=== PATIENT | male | born 1935 | race Caucasian/White ===

== ENCOUNTER 2021-10-29 17:15 | Inpatient (IN) | payer MEDICARE, BC ==
[~2021-10-29] VITALS: Ht 172.7 cm; Wt 63.7 kg
[2021-10-29 17:58] LABS: HEMATOCRIT 33.7 % (42.0-52.0); MCH 29.9 pg (26.0-34.0); MCHC 32.7 g/dL (28.0-37.0); MCV 91.6 fL (80.0-100.0); MPV 7.1 fl. (7.2-11.1); NUCLEATED RBCS 0 /100WBC; PLATELET COUNT* 352 thou/uL (150-400); RBC 3.68 mil/uL (4.50-6.00); RDW-CV 17.3 % (10.5-14.5); WBC 20.1 thou/uL (4.0-11.0)
[2021-10-29 18:05] VITALS: BP 105/67
[2021-10-29 18:07] LABS: CREATININE 2.5 mg/dL (0.6-1.3); POTASSIUM 5.2 mmol/L (3.5-5.1)
[2021-10-29 18:18] LABS: ALBUMIN 2.6 g/dL (3.4-5.0); TOTAL BILIRUBIN 1.5 mg/dL (<0.1-1.0); TOTAL PROTEIN 7.4 g/dL (6.4-8.2)
[2021-10-29 18:35] LABS: ABSOLUTE LYMPHOCYTES 0.6 thou/uL (0.8-5.3); ABSOLUTE MONOCYTES 1.4 thou/uL (0.0-1.2); ABSOLUTE NEUTROPHILS 18.1 thou/uL (1.6-8.1); PLATELET ESTIMATE ADEQUATE
[2021-10-29 18:36] LABS: POLYCHROMASIA Occasional
[2021-10-29] MEDS ORDERED: WARFARIN SODIUM5 MG (19:04)
[2021-10-29] MEDS ORDERED: POTASSIUM (19:05)
[2021-10-29] MEDS ORDERED: DILTIAZEM (19:05)
[2021-10-29] MEDS ORDERED: "\\\"WATER PILL\\\"" (19:06)
[2021-10-29 20:54] LABS: INR 2.4; PROTIME 23.5 Seconds (9.20-11.50)
[2021-10-29 23:30] VITALS: BP 107/80
[2021-10-29 23:36] VITALS: BP 165/135
[2021-10-29 23:53] LABS: BE -0.2 mmol/L (-2 to +3); PCO2 VENOUS 46.9 mmHg (41.0-51.0); PO2 VENOUS 31.9 mmHg (35.0-45.0)
[2021-10-30] VITALS (96 sets, daily range): BP systolic 67–154; BP diastolic 33–111
[2021-10-30 05:32] LABS: ABSOLUTE BASOPHILS 0.1 thou/uL (0.0-0.2); ABSOLUTE LYMPHOCYTES 0.2 thou/uL (0.8-5.3); ABSOLUTE MONOCYTES 0.7 thou/uL (0.0-1.2); ABSOLUTE NEUTROPHILS 18.3 thou/uL (1.6-8.1); BASOPHILS 0.5 %; HEMOGLOBIN 9.6 gm/dL (14.0-18.0); LYMPHOCYTES 0.9 %; MCH 29.1 pg (26.0-34.0); MCV 91.2 fL (80.0-100.0); MONOCYTES 3.4 %; MPV 7.3 fl. (7.2-11.1); NUCLEATED RBCS 0 /100WBC; PLATELET COUNT* 314 thou/uL (150-400); POLYS 95.2 %; RBC 3.29 mil/uL (4.50-6.00); RDW-CV 17.2 % (10.5-14.5); WBC 19.3 thou/uL (4.0-11.0)
[2021-10-30 05:49] LABS: PREALBUMIN 7.4 mg/dL (18.0-35.7)
[2021-10-30 06:03] LABS: CALCIUM 9.1 mg/dL (8.5-10.1); CREATININE 2.3 mg/dL (0.6-1.3); POTASSIUM 5.6 mmol/L (3.5-5.1); TOTAL BILIRUBIN 1.3 mg/dL (<0.1-1.0)
[2021-10-30 08:45] LABS: INR 2.7; PROTIME 26.5 Seconds (9.20-11.50)
--- NOTE | 2021-10-30 09:08 | EKG ---
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: : 1935 Requested By: Manas De Leon Order Number: [id number] MD: David Davis Measurements Intervals [place] Rate: 128 P: SC: QRS: -82 QRSD: 73 T: 53 QT: 291 QTc: 425 Interpretive Statements Atrial fibrillation with a mildly tachycardic ventricular response Abnormal R-wave progression, early transition Inferior infarct, age indeterminate Consider anterior infarct No previous ECG available for comparison Electronically Signed On 10-30-2021 9:08:40 CONTROL SUPERVISOR by David Davis [email or web address] <ELECTRONICALLY SIGNED> By: David Davis MD, [facility] 10/30/2108 174 [id number] David Davis MD, [facility] /EPI
[2021-10-30 12:20] LABS: URINE BILIRUBIN NEGATIVE (Negative); URINE BLOOD 1+ (Negative); URINE CLARITY CLEAR; URINE COLOR YELLOW; URINE GLUCOSE-RANDOM NEGATIVE (Negative); URINE KETONES NEGATIVE (Negative); URINE LEUKOCYTES NEGATIVE (Negative); URINE NITRITE NEGATIVE (Negative); URINE PROTEIN TRACE (Negative); URINE SPECIFIC GRAVITY 1.025 (1.005-1.030); URINE UROBILINOGEN 0.2 E.U./dl (0.2-1.0)
[2021-10-30 12:44] LABS: HYALINE CASTS 4-10 Moderate /LPF (None Seen); SQUAMOUS 0-3 Few /LPF (0-3)
[2021-10-30 12:45] LABS: BACTERIA 1-9 Few /HPF (None Seen); CRYSTALS None Seen /LPF (None Seen); URINE RBC 0-2 Rare /HPF (0-2); URINE WBC None Seen /HPF (0-5)
--- NOTE | 2021-10-30 14:43 | 2DMMODE ---
[place] [address] 2 D/M-MODE ECHOCARDIOGRAM Name: RADHA WARD Room: [address] IN .[place].#: [id number] Admission: 10/29/21 Attend Phys: Shorty Dumont, Discharge: Date of : 35 Date of Service: 10/30/21 1443 Report #: [id number] THIS REPORT FOR: cc: FAM - No family physician/PCP FAM - No family physician/PCP David Davis MD [facility] ~ APPROVED REPORT Study performed: 10/30/2021 09:20:41 EXAM: Limited 2D, Doppler, and color-flow Echocardiogram Patient Location: In-Patient Room #: 007 Status: routine BSA: 1.79 HR: 96 bpm BP: 90/52 mmHg Rhythm: NSR Other Information Study Quality: Good Indications Congestive Heart Failure Atrial Fibrillation Sepsis Dyspnea Volumes Left Atrial Volume (Systole) LA ESV Index: 59.40 mL/m2 Aortic Valve AI [place]: 1.35 m/s2 AI PHT: 388.05 ms Tricuspid Valve RAP Estimate: 10.00 mmHg TR Peak Gr.: 63.24 mmHg RVSP: 73.00 mmHg PA Pressure: 73.00 mmHg Left Ventricle The left ventricle is normal size. There is normal LV segmental wall motion. Moderate concentric left ventricular hypertrophy. The left ventricular systolic function is [place] [address] 2 D/M-MODE ECHOCARDIOGRAM Name: RADHA WARD Room: [address] IN M.R.#: [id number] Admission: 10/29/21 Attend Phys: Shorty Dumont, Discharge: Date of : 35 Date of Service: 10/30/21 1443 Report #: [id number] ejection fraction is within the normal range. LVEF is 65-70%. Right Ventricle The right ventricle is normal size. The right ventricular systolic function is normal. Atria Left atrium is severely dilated. Right atrium is mildly dilated. Aortic Valve Mild aortic valve sclerosis. Moderate aortic regurgitation. Mitral Valve Severe mitral annular calcification. There is no mitral valve regurgitation noted. Tricuspid Valve The tricuspid valve is normal in structure. Moderate tricuspid regurgitation The RVSP is 60 mmHg. Pulmonic Valve The pulmonary valve is normal in structure. Mild pulmonic regurgitation. Great Vessels The aortic root is normal in size. IVC is dilated. Pericardium Mild pericardial effusion. <Conclusion> The left ventricle is normal size. Moderate concentric left ventricular hypertrophy. The left ventricular systolic function is normal. The left ventricular ejection fraction is within the normal range. LVEF is 65-70%. The right ventricle is normal size. Left atrium is severely dilated. Right atrium is mildly dilated. Mild aortic valve sclerosis. Moderate aortic regurgitation. Severe mitral annular calcification. There is no mitral valve regurgitation noted. The tricuspid valve [place] [address] 2 D/M-MODE ECHOCARDIOGRAM Name: RADHA WARD Room: [address] IN .R.#: [id number] Admission: 10/29/21 Attend Phys: Shorty Dumont, Discharge: Date of : 35 Date of Service: 10/30/211442 Report #: [id number] Moderate tricuspid regurgitation The RVSP is 60 mmHg. IVC is dilated. Mild pericardial effusion. There is normal LV segmental wall motion. <ELECTRONICALLY SIGNED> By: David Davis MD, FACC 10/30/211442 42 42 David Davis MD, FACC /INF
[2021-10-30 14:51] LABS: CALCIUM 9.4 mg/dL (8.5-10.1); POTASSIUM 4.5 mmol/L (3.5-5.1)
[2021-10-30 18:05] LABS: BE -3.2 mmol/L (-2 to +3); PCO2 27.8 mmHg (35.0-45.0); pH 7.466 (7.340-7.450)
[2021-10-30 18:08] LABS: PO2 206.3 mmHg (75.0-100.0)
[2021-10-30 18:15] LABS: INFLUENZA A ANTIGEN Positive (Negative); INFLUENZA B ANTIGEN Negative (Negative)
[2021-10-31] VITALS (86 sets, daily range): BP systolic 85–146; BP diastolic 34–73
[2021-10-31 02:06] LABS: GLYCOHEMOGLOBIN (HGB A1C) 5.4 % (4.8-5.6)
[2021-10-31 03:52] LABS: ABSOLUTE BASOPHILS 0.1 thou/uL (0.0-0.2); ABSOLUTE LYMPHOCYTES 0.2 thou/uL (0.8-5.3); ABSOLUTE MONOCYTES 0.7 thou/uL (0.0-1.2); ABSOLUTE NEUTROPHILS 16.9 thou/uL (1.6-8.1); BASOPHILS 0.4 %; HEMATOCRIT 27.4 % (42.0-52.0); HEMOGLOBIN 8.8 gm/dL (14.0-18.0); LYMPHOCYTES 0.9 %; MCH 28.9 pg (26.0-34.0); MCV 90.4 fL (80.0-100.0); MONOCYTES 3.7 %; MPV 7.6 fl. (7.2-11.1); NUCLEATED RBCS 0 /100WBC; RBC 3.03 mil/uL (4.50-6.00); RDW-CV 17.1 % (10.5-14.5); WBC 17.8 thou/uL (4.0-11.0)
[2021-10-31 03:56] LABS: PLATELET COUNT* 211 thou/uL (150-400)
[2021-10-31 04:15] LABS: CALCIUM 9.5 mg/dL (8.5-10.1); CREATININE 1.8 mg/dL (0.6-1.3); PHOSPHORUS* 4.6 mg/dL (2.5-4.9); POTASSIUM 3.6 mmol/L (3.5-5.1)
[2021-10-31 08:55] LABS: INR 1.6; PROTIME 16.6 Seconds (9.20-11.50)
[2021-10-31 09:00] LABS: ALBUMIN 2.5 g/dL (3.4-5.0); CALCIUM 9.1 mg/dL (8.5-10.1); CREATININE 1.6 mg/dL (0.6-1.3); MAGNESIUM 2.1 mg/dL (1.8-2.4); POTASSIUM 3.5 mmol/L (3.5-5.1); TOTAL BILIRUBIN 1.2 mg/dL (<0.1-1.0); TOTAL PROTEIN 5.7 g/dL (6.4-8.2)
--- NOTE | 2021-10-31 13:37 | CON ---
[address] [address] CONSULTATION Name: EDRADHA Carlos Room: [address] IN M.R.#: [id number] Admission: 10/29/21 Attend Phys: Shorty Dumont MD Discharge: Date of : 35 Report #: [id number] THIS REPORT FOR: cc: SKIP - No family physician/PCP SKIP - No family physician/PCP Bobby Doyle MD ~ DATE OF CONSULTATION: 10/30/2021 REQUESTING PHYSICIAN: Dr. Juarez. INDICATION FOR CONSULTATION: Acute hypoxemic respiratory failure. HISTORY OF PRESENT ILLNESS: This is an 85-year-old gentleman. I have limited information regarding his past medical history available. He is reported to be a former smoker; however, it is not known to me as to whether he has COPD. The patient is reported to be in chronic atrial fibrillation and has had mitral stenosis. He is anticoagulated with Coumadin. He has previously been at [place]. I do not have his baseline creatinine available. At this time, the patient presented with shortness of breath. I was called by the ICU nurses during the night. The patient appeared to be in obvious respiratory distress and therefore, I requested the patient to be intubated. The patient currently is on the ventilator. He is on 80% FiO2 and 10 of PEEP. He had some issues with high peak airway pressures, however, repeat to be stable with these settings. At the time of my evaluation, the patient currently has phenylephrine running at 2.13. We have not been able to obtain arterial blood gases today. Some of his blood pressures still have been on the lower side; however, it is not clear if we are getting accurate readings on blood pressure. The patient has had AFib with RVR as well. He has significant swelling of lower extremities. There is significant skin changes on the lower extremities as well. He is not really requiring a lot of sedation, only on 35 of fentanyl and 2 of Versed, appears to be well sedated with the same. PAST MEDICAL HISTORY: Severe aortic stenosis with pulmonary hypertension, pulmonary artery systolic reported to be 63 on the last echo with a hyperdynamic left ventricular ejection fraction greater than 70%. History of previous colon cancer, previous TIA, anticoagulation with Coumadin, congestive heart failure due to mitral stenosis. His baseline creatinine is not known to me. Despite a history of smoking, not known to me whether he has COPD. SOCIAL HISTORY: Previous history of smoking, unable to quantify at this time. ALLERGIES: [place] [address] CONSULTATION Name: RADHA WARD Room: [address]#: [id number] Admission: 10/29/21 Attend Phys: Shorty Dumont MD Discharge: Date of : 35 Report #: [id number] [facility] MEDICATIONS: [facility]. Note, he is on Coumadin at home. FAMILY HISTORY: No pertinent family history. VACCINATION HISTORY: Not known to me as to whether he is vaccinated for COVID. PHYSICAL EXAMINATION: GENERAL: He is well sedated. As above, ventilator settings and sedation are reviewed. VITAL SIGNS: In the records reviewed. HEENT: Head is normocephalic and atraumatic. Endotracheal tube is in good position. NECK: Does not show raised JVP, asymmetry, mass or lymph nodes. He has a central line in place. CHEST: Symmetrical expansion on inspection and palpation. On auscultation, breath sounds are decreased at bilateral lung bases, in fact, they are almost absent at the right lung base. HEART: Irregular. No murmur. ABDOMEN: Soft and nontender. EXTREMITIES: Lower extremities, 2-3+ edema bilaterally. No calf tenderness. SKIN: Dry and intact. NEUROLOGIC: No focal deficit identified, moves all extremities to pain. LABORATORY DATA: Lab work in [facility] reviewed. He is in renal failure, unknown as to whether acute or chronic. ASSESSMENT AND PLAN: 1. Acute on chronic hypoxemic respiratory failure. Note that he is reported to be on 2 liters oxygen at baseline. Currently, he is on high FiO2 and PEEP on the ventilator. We need an A-line to be able to assess further, requested the same. We will do an arterial blood gas once it is placed. Meanwhile, continue current sedation and ventilator settings. 2. Acute renal failure with fluid overload. I will try to find his previous creatinine. It is not known to me as to whether he has chronic renal failure or not. Meanwhile, I agree with albumin as ordered by Dr. Copeland, we will follow response. A renal ultrasound is pending at this time. There is an echocardiogram ordered by the Cardiology Service, which is also pending at this time. 3. Bilateral pleural effusions. There is a fairly large pleural effusion on the right side. There is a smaller one on the left as well. I will plan to request a thoracentesis on the right side tomorrow morning. He may need a thoracentesis on the left side as well. It will be preferable to have a lower INR. [address] [address] CONSULTATION Name: RADHA WARD Room: [address] IN Michelle#: [id number] Admission: 10/29/21 Attend Phys: Shorty Dumont MD Discharge: Date of : 35 Report #: [id number] Therefore, I cautiously ordered 1 dose of vitamin K 5 mg while understanding that this will make it harder for him to be anticoagulated again with Coumadin. 4. Sepsis/pulmonary infiltrates/cellulitis, lower extremities. I requested vancomycin to be discontinued last night, apparently still was on this morning, discontinued. We started linezolid this morning. We will continue with cefepime. More cultures and serologies are ordered. Including COVID PCR and Influenza swab. 5. Possible chronic obstructive pulmonary disease/history of smoking. I did order Solu-Medrol, we will follow and see if we can cut back or discontinue. I do intend to order nebulized bronchodilators as well. We will start with Brovana and Xopenex as he has had tachycardia. 6. Atrial fibrillation with rapid ventricular response. See discussion above. Cardiology on the case. 7. Severe pulmonary hypertension. This is likely secondary to mitral stenosis. 8. Mitral stenosis. 9. Gastrointestinal prophylaxis, Protonix. 10. Nutrition. We will start tube feeds. 11. Deep vein thrombosis prophylaxis, has been on Coumadin. Hopefully, it could be started again after thoracentesis. 12. Elevated liver function enzymes, likely due to hepatic congestion from congestive heart failure/pulmonary hypertension and also a component of sepsis. We will follow. The patient is critically ill at this time. Total time spent providing critical care to this patient today exceeds 50 minutes. <ELECTRONICALLY SIGNED> By: Bobby Doyle MD 10/31/21 1337 1220 1634Asergo Doyle MD /nt
[2021-10-31 13:48] LABS: BF LYMPHOCYTES 6 %; BF MONOCYTES 1 %; BF POLYS 89 %; BF TISSUE 3 /100 WBC; BODY FLUID BANDS 4 %
[2021-10-31 14:03] LABS: BF RBC 1062 /mm3; CLARITY CLEAR; SOURCE PLEURAL; TOTAL CELL COUNT 141 /mm3; TOTAL VOLUME 2560 ml
[2021-10-31 17:06] LABS: CALCIUM 9.6 mg/dL (8.5-10.1); CREATININE 1.5 mg/dL (0.6-1.3); POTASSIUM 3.5 mmol/L (3.5-5.1)
[2021-11-01] VITALS (79 sets, daily range): BP systolic 76–144; BP diastolic 39–68
[2021-11-01 05:02] LABS: HEMATOCRIT 28.4 % (42.0-52.0); MCH 28.6 pg (26.0-34.0); MCHC 31.8 g/dL (28.0-37.0); MCV 90.1 fL (80.0-100.0); MPV 7.7 fl. (7.2-11.1); RBC 3.16 mil/uL (4.50-6.00); RDW-CV 17.5 % (10.5-14.5); WBC 21.7 thou/uL (4.0-11.0)
[2021-11-01 05:22] LABS: INR 1.5; PROTIME 15.1 Seconds (9.20-11.50)
[2021-11-01 05:30] LABS: CALCIUM 9.7 mg/dL (8.5-10.1); CREATININE 1.4 mg/dL (0.6-1.3); MAGNESIUM 2.1 mg/dL (1.8-2.4); POTASSIUM 3.4 mmol/L (3.5-5.1); TOTAL BILIRUBIN 1.2 mg/dL (<0.1-1.0); TOTAL PROTEIN 5.9 g/dL (6.4-8.2)
[2021-11-01 11:48] LABS: BE -0.1 mmol/L (-2 to +3); pH 7.447 (7.340-7.450)
[2021-11-01 11:51] LABS: PO2 175.9 mmHg (75.0-100.0)
[2021-11-01 16:06] LABS: PCO2 36.8 mmHg (35.0-45.0)
[2021-11-02] VITALS (57 sets, daily range): BP systolic 86–151; BP diastolic 37–74
[2021-11-02 04:39] LABS: HEMATOCRIT 27.7 % (42.0-52.0); HEMOGLOBIN 8.7 gm/dL (14.0-18.0); MCH 29.1 pg (26.0-34.0); MCHC 31.4 g/dL (28.0-37.0); MCV 92.7 fL (80.0-100.0); MPV 8.1 fl. (7.2-11.1); RBC 2.98 mil/uL (4.50-6.00); RDW-CV 17.7 % (10.5-14.5); WBC 18.1 thou/uL (4.0-11.0)
[2021-11-02 05:01] LABS: INR 1.6
[2021-11-02 05:11] LABS: ALBUMIN 3.1 g/dL (3.4-5.0); CALCIUM 9.8 mg/dL (8.5-10.1); CREATININE 1.1 mg/dL (0.6-1.3); MAGNESIUM 2.3 mg/dL (1.8-2.4); TOTAL BILIRUBIN 0.9 mg/dL (<0.1-1.0); TOTAL PROTEIN 5.9 g/dL (6.4-8.2)
[2021-11-02 08:40] LABS: BE -0.2 mmol/L (-2 to +3); PCO2 41.8 mmHg (35.0-45.0); PO2 82.8 mmHg (75.0-100.0); pH 7.391 (7.340-7.450)
[2021-11-03] VITALS (44 sets, daily range): BP systolic 93–160; BP diastolic 35–67
[2021-11-03 06:07] LABS: HEMATOCRIT 30.3 % (42.0-52.0); HEMOGLOBIN 9.4 gm/dL (14.0-18.0); MCH 27.9 pg (26.0-34.0); MPV 8.4 fl. (7.2-11.1); RBC 3.37 mil/uL (4.50-6.00); RDW-CV 17.2 % (10.5-14.5); WBC 14.9 thou/uL (4.0-11.0)
[2021-11-03 06:18] LABS: INR 1.5; PROTIME 15.1 Seconds (9.20-11.50)
[2021-11-03 06:20] LABS: ALBUMIN 3.1 g/dL (3.4-5.0); CREATININE 1.4 mg/dL (0.6-1.3); MAGNESIUM 2.3 mg/dL (1.8-2.4); POTASSIUM 4.3 mmol/L (3.5-5.1)
[2021-11-03 08:56] LABS: BE -2.6 mmol/L (-2 to +3); PCO2 37.4 mmHg (35.0-45.0); PO2 79.3 mmHg (75.0-100.0); pH 7.388 (7.340-7.450)
[2021-11-03 12:06] LABS: BODY FLUID PROTEIN 1.4 g/dL (())
[2021-11-03 14:07] LABS: MYCOPLASMA PNEUMONIA IgG 153 U/mL (0-99); MYCOPLASMA PNEUMONIA IgM <770 U/mL (0-769)
[2021-11-04] VITALS (20 sets, daily range): BP systolic 98–139; BP diastolic 42–66
[2021-11-04 05:17] LABS: HEMATOCRIT 31.9 % (42.0-52.0); HEMOGLOBIN 9.9 gm/dL (14.0-18.0); MCH 28.5 pg (26.0-34.0); MPV 8.4 fl. (7.2-11.1); NUCLEATED RBCS 1 /100WBC; PLATELET COUNT* 115 thou/uL (150-400); RBC 3.47 mil/uL (4.50-6.00); RDW-CV 17.8 % (10.5-14.5); WBC 13.5 thou/uL (4.0-11.0)
[2021-11-04 05:19] LABS: ALBUMIN 2.9 g/dL (3.4-5.0); CALCIUM 10.1 mg/dL (8.5-10.1); CREATININE 1.2 mg/dL (0.6-1.3); POTASSIUM 4.3 mmol/L (3.5-5.1); TOTAL PROTEIN 5.9 g/dL (6.4-8.2)
[2021-11-04 05:22] LABS: INR 1.3; PROTIME 13.6 Seconds (9.20-11.50)
[2021-11-04 07:53] LABS: ABSOLUTE EOSINOPHILS 0.1 thou/uL (0.0-0.7); ABSOLUTE NEUTROPHILS 13.4 thou/uL (1.6-8.1); PLATELET ESTIMATE DECREASED
[2021-11-04 07:54] LABS: ANISOCYTOSIS 1+
[2021-11-05] VITALS (17 sets, daily range): BP systolic 83–126; BP diastolic 38–58
[2021-11-05 04:26] LABS: INR 1.5; PROTIME 14.7 Seconds (9.20-11.50)
[2021-11-05 04:36] LABS: ABSOLUTE LYMPHOCYTES 0.1 thou/uL (0.8-5.3); ABSOLUTE MONOCYTES 0.2 thou/uL (0.0-1.2); ABSOLUTE NEUTROPHILS 11.5 thou/uL (1.6-8.1); ALBUMIN 2.4 g/dL (3.4-5.0); BASOPHILS 0.2 %; CALCIUM 9.4 mg/dL (8.5-10.1); HEMATOCRIT 28.8 % (42.0-52.0); HEMOGLOBIN 9.2 gm/dL (14.0-18.0); MAGNESIUM 2.4 mg/dL (1.8-2.4); MCH 30.2 pg (26.0-34.0); MCV 94.3 fL (80.0-100.0); MONOCYTES 1.7 %; NUCLEATED RBCS 0 /100WBC; PLATELET COUNT* 85 thou/uL (150-400); POLYS 97.1 %; POTASSIUM 4.2 mmol/L (3.5-5.1); RBC 3.05 mil/uL (4.50-6.00); RDW-CV 17.3 % (10.5-14.5); TOTAL BILIRUBIN 0.9 mg/dL (<0.1-1.0); WBC 11.8 thou/uL (4.0-11.0)
[2021-11-05 12:04] LABS: BE -2.4 mmol/L (-2 to +3); PCO2 25.8 mmHg (35.0-45.0); pH 7.498 (7.340-7.450)
[2021-11-05 12:05] LABS: PO2 149.7 mmHg (75.0-100.0)
[2021-11-05 16:43] LABS: CREATININE 1.3 mg/dL (0.6-1.3); MAGNESIUM 2.4 mg/dL (1.8-2.4); POTASSIUM 4.4 mmol/L (3.5-5.1)
[2021-11-06] VITALS (27 sets, daily range): BP systolic 86–118; BP diastolic 39–51
[2021-11-06 04:43] LABS: ABSOLUTE LYMPHOCYTES 0.2 thou/uL (0.8-5.3); ABSOLUTE MONOCYTES 0.3 thou/uL (0.0-1.2); ABSOLUTE NEUTROPHILS 13.7 thou/uL (1.6-8.1); BASOPHILS 0.2 %; EOSINOPHILS 0.2 %; HEMOGLOBIN 9.4 gm/dL (14.0-18.0); LYMPHOCYTES 1.5 %; MCH 28.3 pg (26.0-34.0); MCHC 31.3 g/dL (28.0-37.0); MCV 90.5 fL (80.0-100.0); MPV 8.3 fl. (7.2-11.1); NUCLEATED RBCS 0 /100WBC; PLATELET COUNT* 63 thou/uL (150-400); POLYS 96.1 %; RBC 3.31 mil/uL (4.50-6.00); RDW-CV 17.6 % (10.5-14.5); WBC 14.2 thou/uL (4.0-11.0)
[2021-11-06 05:24] LABS: PREALBUMIN 15.1 mg/dL (18.0-35.7)
[2021-11-06 05:25] LABS: ALBUMIN 2.7 g/dL (3.4-5.0); CALCIUM 9.5 mg/dL (8.5-10.1); CREATININE 1.2 mg/dL (0.6-1.3); POTASSIUM 3.8 mmol/L (3.5-5.1); TOTAL BILIRUBIN 1.2 mg/dL (<0.1-1.0); TOTAL PROTEIN 5.3 g/dL (6.4-8.2)
[2021-11-06 17:15] LABS: CALCIUM 9.1 mg/dL (8.5-10.1); CREATININE 1.2 mg/dL (0.6-1.3); MAGNESIUM 2.3 mg/dL (1.8-2.4); POTASSIUM 4.5 mmol/L (3.5-5.1)
[2021-11-07] VITALS (27 sets, daily range): BP systolic 84–121; BP diastolic 35–60
[2021-11-07 04:09] LABS: ABSOLUTE LYMPHOCYTES 0.2 thou/uL (0.8-5.3); ABSOLUTE MONOCYTES 0.5 thou/uL (0.0-1.2); ABSOLUTE NEUTROPHILS 14.5 thou/uL (1.6-8.1); EOSINOPHILS 0.1 %; HEMATOCRIT 28.2 % (42.0-52.0); HEMOGLOBIN 8.7 gm/dL (14.0-18.0); LYMPHOCYTES 1.6 %; MCH 28.6 pg (26.0-34.0); MCHC 30.9 g/dL (28.0-37.0); MCV 92.7 fL (80.0-100.0); MONOCYTES 3.2 %; MPV 8.5 fl. (7.2-11.1); NUCLEATED RBCS 0 /100WBC; PLATELET COUNT* 60 thou/uL (150-400); POLYS 95.1 %; RBC 3.04 mil/uL (4.50-6.00); RDW-CV 18.2 % (10.5-14.5); WBC 15.3 thou/uL (4.0-11.0)
[2021-11-07 04:22] LABS: ALBUMIN 2.5 g/dL (3.4-5.0); CALCIUM 9.2 mg/dL (8.5-10.1); CREATININE 1.1 mg/dL (0.6-1.3); MAGNESIUM 2.4 mg/dL (1.8-2.4); POTASSIUM 4.1 mmol/L (3.5-5.1)
--- NOTE | 2021-11-07 10:08 | PATH ---
[address] [address] PATHOLOGY RPT PROCEDURE Name: RADHA WARD Room: [address] IN [facility]#: [id number] Admission: 10/29/21 Date of : 35 Discharge: Report #: [id number] Path Case #: [id number] Note [facility] Accession Number: [id number] TESTS RESULT FLAG UNITS REF RANGE LAB Clinician Provided Cytology Information No. of containers..01 Other (Miscellaneous) Source: PLEURAL FLUID DIAGNOSIS: 02 PLEURAL FLUID, SIDE NOT SPECIFIED: NEGATIVE FOR MALIGNANT CELLS. FEW MESOTHELIAL CELLS AND INFLAMMATORY CELLS ARE PRESENT. THIS INTERPRETATION INCLUDES EVALUATION OF A CELL BLOCK. Signed out by: 02 Tapan Rajput MD, Pathologist NPI- [id number] Performed by: 01 Araceli Nicholson, Quality Engineering Manager ([facility]) Gross description: 01 25ML, YELLOW, CLEAR /LCS 11/03/2021 1521 Local FLAG LEGEND: L-Low Normal,H-High Normal,LL-Alert Low,HH-Alert High <-Panic Low,>-Panic High,A-Abnormal,AA-Critical Abnormal Performed at: [address] [place] [address] Amos Mcguire MD, 02 [address] [place] [address] Tapan Rajput MD, Specimen Comment: A courtesy copy of this report has been sent to [phone] Specimen Comment: [phone], Specimen Comment: Report sent to , DR TALBOT / DR CLINE Specimen Comment: A duplicate report has been generated due to demographic updates. Performed at: [address], [place], [place] [id number] MD Amos Mcguire MD Phone: [phone]
[2021-11-07 12:07] LABS: BE -0.8 mmol/L (-2 to +3); pH 7.462 (7.340-7.450)
[2021-11-07 12:09] LABS: PO2 150.5 mmHg (75.0-100.0)
[2021-11-07 14:07] LABS: BODY FLUID PROTEIN 1.2 g/dL (())
[2021-11-07 14:07] LABS: BODY FLUID PROTEIN 1.3 g/dL (())
[2021-11-08] VITALS (10 sets, daily range): BP systolic 88–107; BP diastolic 40–53
[2021-11-08 08:36] LABS: HEMATOCRIT 27.3 % (42.0-52.0); HEMOGLOBIN 8.5 gm/dL (14.0-18.0); MCH 28.9 pg (26.0-34.0); MCHC 31.1 g/dL (28.0-37.0); MCV 92.9 fL (80.0-100.0); MPV 10.2 fl. (7.2-11.1); RBC 2.93 mil/uL (4.50-6.00); WBC 15.8 thou/uL (4.0-11.0)
[2021-11-08 09:13] LABS: CALCIUM 9.5 mg/dL (8.5-10.1); CREATININE 1.3 mg/dL (0.6-1.3); POTASSIUM 4.1 mmol/L (3.5-5.1)
[2021-11-09 04:00] VITALS: BP 101/47
[2021-11-09 04:50] LABS: HEMATOCRIT 24.8 % (42.0-52.0); HEMOGLOBIN 7.8 gm/dL (14.0-18.0); MCH 28.5 pg (26.0-34.0); MCHC 31.6 g/dL (28.0-37.0); MCV 90.2 fL (80.0-100.0); MPV 9.2 fl. (7.2-11.1); NUCLEATED RBCS 1 /100WBC; RBC 2.75 mil/uL (4.50-6.00); RDW-CV 17.7 % (10.5-14.5); WBC 14.9 thou/uL (4.0-11.0)
[2021-11-09 05:03] LABS: PLATELET COUNT* 36 thou/uL (150-400)
[2021-11-09 05:26] LABS: ALBUMIN 2.4 g/dL (3.4-5.0); CALCIUM 9.3 mg/dL (8.5-10.1); CREATININE 1.2 mg/dL (0.6-1.3); POTASSIUM 4.1 mmol/L (3.5-5.1); TOTAL BILIRUBIN 1.3 mg/dL (<0.1-1.0)
[2021-11-09 07:41] LABS: ABSOLUTE NEUTROPHILS 13.4 thou/uL (1.6-8.1)
[2021-11-09 07:42] LABS: ABSOLUTE LYMPHOCYTES 0.4 thou/uL (0.8-5.3); ANISOCYTOSIS 2+; TOXIC GRANULATION 2+
[2021-11-09 07:43] LABS: PLATELET ESTIMATE DECREASED
[2021-11-09 08:39] VITALS: BP 94/44
[2021-11-09 12:00] VITALS: BP 83/45
[2021-11-09 16:00] VITALS: BP 98/48
[2021-11-09 21:00] VITALS: BP 109/47
[2021-11-09 23:57] VITALS: BP 107/46
[2021-11-10 04:00] VITALS: BP 103/47
[2021-11-10 04:55] LABS: ABSOLUTE LYMPHOCYTES 0.3 thou/uL (0.8-5.3); ABSOLUTE MONOCYTES 1.1 thou/uL (0.0-1.2); ABSOLUTE NEUTROPHILS 17.8 thou/uL (1.6-8.1); BASOPHILS 0.1 %; HEMATOCRIT 24.8 % (42.0-52.0); HEMOGLOBIN 7.7 gm/dL (14.0-18.0); LYMPHOCYTES 1.3 %; MCH 28.6 pg (26.0-34.0); MCHC 30.9 g/dL (28.0-37.0); MCV 92.7 fL (80.0-100.0); MONOCYTES 5.9 %; MPV 9.8 fl. (7.2-11.1); NUCLEATED RBCS 0 /100WBC; PLATELET COUNT* 53 thou/uL (150-400); POLYS 92.7 %; RBC 2.68 mil/uL (4.50-6.00); RDW-CV 17.8 % (10.5-14.5); WBC 19.2 thou/uL (4.0-11.0)
[2021-11-10 05:03] LABS: ALBUMIN 2.4 g/dL (3.4-5.0); CALCIUM 9.7 mg/dL (8.5-10.1); CREATININE 1.2 mg/dL (0.6-1.3); POTASSIUM 4.4 mmol/L (3.5-5.1); TOTAL BILIRUBIN 1.2 mg/dL (<0.1-1.0); TOTAL PROTEIN 5.1 g/dL (6.4-8.2)
[2021-11-10 07:15] VITALS: BP 92/43
[2021-11-10 11:52] VITALS: BP 102/45
[2021-11-10 15:46] VITALS: BP 101/52
[2021-11-10 20:00] VITALS: BP 102/51
[2021-11-11] VITALS: BP 103/56
[2021-11-11 04:00] VITALS: BP 111/56
[2021-11-11 05:28] LABS: ABSOLUTE LYMPHOCYTES 0.3 thou/uL (0.8-5.3); ABSOLUTE MONOCYTES 1.2 thou/uL (0.0-1.2); ABSOLUTE NEUTROPHILS 19.3 thou/uL (1.6-8.1); BASOPHILS 0.1 %; HEMATOCRIT 24.7 % (42.0-52.0); HEMOGLOBIN 7.7 gm/dL (14.0-18.0); LYMPHOCYTES 1.3 %; MCH 29.5 pg (26.0-34.0); MCHC 31.3 g/dL (28.0-37.0); MCV 94.1 fL (80.0-100.0); MONOCYTES 5.9 %; MPV 10.1 fl. (7.2-11.1); NUCLEATED RBCS 1 /100WBC; PLATELET COUNT* 78 thou/uL (150-400); POLYS 92.7 %; RBC 2.62 mil/uL (4.50-6.00); WBC 20.9 thou/uL (4.0-11.0)
[2021-11-11 06:15] LABS: ALBUMIN 2.4 g/dL (3.4-5.0); CALCIUM 9.7 mg/dL (8.5-10.1); CREATININE 1.2 mg/dL (0.6-1.3); MAGNESIUM 2.5 mg/dL (1.8-2.4); POTASSIUM 4.7 mmol/L (3.5-5.1); TOTAL BILIRUBIN 1.1 mg/dL (<0.1-1.0); TOTAL PROTEIN 5.1 g/dL (6.4-8.2)
[2021-11-11 08:23] VITALS: BP 105/48
[2021-11-11 12:38] VITALS: BP 110/63
[2021-11-11 16:41] VITALS: BP 117/33
[2021-11-12 02:28] VITALS: BP 100/60
[2021-11-12 05:14] LABS: HEMATOCRIT 23.9 % (42.0-52.0); HEMOGLOBIN 7.4 gm/dL (14.0-18.0); MCH 28.5 pg (26.0-34.0); MCHC 30.8 g/dL (28.0-37.0); MCV 92.3 fL (80.0-100.0); MPV 9.8 fl. (7.2-11.1); NUCLEATED RBCS 1 /100WBC; PLATELET COUNT* 102 thou/uL (150-400); RBC 2.59 mil/uL (4.50-6.00); RDW-CV 18.2 % (10.5-14.5); WBC 15.9 thou/uL (4.0-11.0)
[2021-11-12 05:57] VITALS: BP 97/57
[2021-11-12 06:05] LABS: ALBUMIN 2.7 g/dL (3.4-5.0); CALCIUM 9.6 mg/dL (8.5-10.1); CREATININE 1.2 mg/dL (0.6-1.3); MAGNESIUM 2.4 mg/dL (1.8-2.4); POTASSIUM 4.9 mmol/L (3.5-5.1); TOTAL BILIRUBIN 1.1 mg/dL (<0.1-1.0); TOTAL PROTEIN 5.7 g/dL (6.4-8.2)
[2021-11-12 08:00] VITALS: BP 110/49
[2021-11-12 09:21] LABS: ABSOLUTE LYMPHOCYTES 0.2 thou/uL (0.8-5.3); ABSOLUTE MONOCYTES 1.1 thou/uL (0.0-1.2); ABSOLUTE NEUTROPHILS 14.6 thou/uL (1.6-8.1); ANISOCYTOSIS 1+; METAMYELOCYTES 1 %; MYELOCYTES 3 %; PLATELET ESTIMATE DECREASED
== END 2021-11-13 02:02 | DRG 871 ==
LOC: M.ERS 17:15 → M.TBA-ER 19:33 → M.ICU 19:33 → M.ORTHSURG 11-08 11:40 → M.2W 11-09 14:56
PROVIDERS: Internal Medicine; Internal Medicine Critical Care Medicine; Internal Medicine Nephrology; Pediatrics; Physician Assistant; ADMIT Internal Medicine; ATTEND Internal Medicine
DX: A41.9 Sepsis, unspecified organism (principal); U07.1 COVID-19; J12.82 Pneumonia due to coronavirus disease 2019; I50.33 Acute on chronic diastolic (congestive) heart failure; R65.21 Severe sepsis with septic shock; J10.08 Influenza due to other identified influenza virus with other specified pneumonia; N17.0 Acute kidney failure with tubular necrosis; J80 Acute respiratory distress syndrome; G93.41 Metabolic encephalopathy; J93.9 Pneumothorax, unspecified; E87.0 Hyperosmolality and hypernatremia; J91.8 Pleural effusion in other conditions classified elsewhere; D68.59 Other primary thrombophilia; I48.20 Chronic atrial fibrillation, unspecified; L03.116 Cellulitis of left lower limb; L03.115 Cellulitis of right lower limb; E46 Unspecified protein-calorie malnutrition; Z66 Do not resuscitate; D69.6 Thrombocytopenia, unspecified; I05.0 Rheumatic mitral stenosis; E87.5 Hyperkalemia; R94.5 Abnormal results of liver function studies; I27.20 Pulmonary hypertension, unspecified; R74.01 Elevation of levels of liver transaminase levels; R73.9 Hyperglycemia, unspecified; R77.8 Other specified abnormalities of plasma proteins; D64.89 Other specified anemias; S81.802A Unspecified open wound, left lower leg, initial encounter; Y93.89 Activity, other specified; Y92.89 Other specified places as the place of occurrence of the external cause; Y99.8 Other external cause status; Z79.899 Other long term (current) drug therapy; Z79.01 Long term (current) use of anticoagulants; Z85.038 Personal history of other malignant neoplasm of large intestine; Z86.73 Personal history of transient ischemic attack (TIA), and cerebral infarction without residual deficits; Z87.891 Personal history of nicotine dependence; Z68.21 Body mass index [BMI] 21.0-21.9, adult